=== PATIENT | male | born 1955 | race Asian ===

== ENCOUNTER 2019-11-30 17:53 | Emergency (ER) | payer OTHER ==
[~2019-11-30] VITALS: Ht 172.7 cm; Wt 81.0 kg
[2019-11-30] MEDS ORDERED: LENA10CA PO (18:08)
[2019-11-30 18:20] LABS: BASOPHILS % (AUTO) 0.8 % (0.0-2.0); HEMATOCRIT 41.5 % (41-53); HEMOGLOBIN 13.9 g/dL (13.5-17.5); LYMPHOCYTES # (AUTO) 2.2 K/uL (1.0-4.8); LYMPHOCYTES % (AUTO) 41.6 % (22.0-44.0); MEAN CORPUSCULAR HEMOGLOBIN 30.3 pg (26.0-34.0); MEAN CORPUSCULAR HGB CONC 33.6 G/dL (31.0-37.0); MEAN CORPUSCULAR VOLUME 90 fL (80-100); MONOCYTES # (AUTO) 0.7 K/uL (0.1-1.0); MONOCYTES % (AUTO) 13.1 % (2.0-9.0); NEUTROPHILS # (AUTO) 2.1 K/uL (1.8-7.7); NEUTROPHILS % (AUTO) 40.5 % (40.0-70.0); PLATELET COUNT (AUTO) 186 K/uL (150-450); RED BLOOD CELL COUNT(AUTO) 4.59 MIL/uL (4.50-5.90); RED CELL DISTRIBUTION WIDTH 14.6 % (11.5-14.5)
[2019-11-30 18:33] LABS: ANION GAP 5 mmol/L (8-16); CALCIUM, TOTAL 8.6 mg/dL (8.8-10.5); CARBON DIOXIDE 32 mmol/L (22-29); CHLORIDE 102 mmol/L (98-107); CREATININE 0.91 mg/dL (0.60-1.30); GLOMERULAR FILTR. RATE CALC > 60 mL/min (>60); GLUCOSE,RANDOM 107 mg/dL (70-110); POTASSIUM 3.9 mmol/L (3.5-5.1); SODIUM SERUM 139 mmol/L (136-145); UREA NITROGEN, BLOOD 18 mg/dL (7-18)
[2019-11-30 18:35] LABS: INR 0.9 (0.9-1.1); PROTHROMBIN TIME 9.7 SEC (9.4-11.6)
[2019-11-30 18:38] LABS: ALANINE AMINOTRANSFERASE 36 U/L (12-78); ALBUMIN 3.6 g/dL (3.4-5.0); ALKALINE PHOSPHATASE 76 U/L (46-116); ASPARTATE AMINOTRANSFERASE 14 U/L (15-37); BILIRUBIN,TOTAL 0.2 mg/dL (0.1-1.0); TOTAL PROTEIN, SERUM 6.6 g/dL (6.4-8.2)
[2019-11-30 19:45] VITALS: BP 103/75
== END 2019-11-30 20:15 | disposition short-term general hospital (02) ==
LOC: EMS 17:56
DX: G45.9 Transient cerebral ischemic attack, unspecified (principal); C85.91 Non-Hodgkin lymphoma, unspecified, lymph nodes of head, face, and neck; C71.9 Malignant neoplasm of brain, unspecified
CPT/HCPCS: 86850; 86900; 86901; 93005

== ENCOUNTER 2021-11-17 21:22 | Emergency (ER) | payer MEDICARE, OTHER ==
[~2021-11-17] VITALS: Ht 175.3 cm; Wt 185.0 kg
[~2021-11-17 21:22] MED LIST: LENA10CA PO
[2021-11-17] MEDS ORDERED: MIDAZOLAM HCL 100 MG in SODIUM CHLORIDE 0.9% 180 ML IV PRN (21:30)
[2021-11-17] MEDS ORDERED: FentaNYL CIT 1000MCG/0.9% NACL 100 ML IV PRN (21:30)
[2021-11-17] MEDS ORDERED: DOPamine 400MG/D5W[STANDARD] 250 ML IV PRN (22:00)
[2021-11-17 22:10] VITALS: BP 69/48
== END 2021-11-18 01:28 ==
LOC: EMS 21:34
DX: J96.00 Acute respiratory failure, unspecified whether with hypoxia or hypercapnia (principal); R41.82 Altered mental status, unspecified; Z85.841 Personal history of malignant neoplasm of brain; Z85.038 Personal history of other malignant neoplasm of large intestine; Z87.898 Personal history of other specified conditions
CPT/HCPCS: 31500; 36556; 71045; 82962; 92950; 96365; 99291; J1265; 51702; 93005; 94002